=== PATIENT | female | born 1965 | race Caucasian/White ===

== ENCOUNTER → 2016-03-29 | Outpatient (CLI) | payer OTHER | LOC: BRMIMAGING 09:04 | PROVIDERS: ATTEND Radiology Diagnostic Radiology | DX: J40 Bronchitis, not specified as acute or chronic (principal) | CPT/HCPCS: 71020-PO ==

== ENCOUNTER → 2016-06-05 | Outpatient (CLI) | payer OTHER | LOC: FIMAGING 09:27 | PROVIDERS: ATTEND Physician Assistant Medical | DX: Z12.31 Encounter for screening mammogram for malignant neoplasm of breast (principal) | CPT/HCPCS: G0202 ==